=== PATIENT | male | born 1990 | race Caucasian/White ===

== ENCOUNTER 2019-05-12 10:06 | Emergency (ER) | payer MEDICAID ==
[~2019-05-12] VITALS: Ht 170.2 cm; Wt 75.5 kg
[2019-05-12 10:10] VITALS: Ht 170.2 cm; Wt 75.5 kg
[2019-05-12 10:48] VITALS: BP 128/77
== END 2019-05-12 10:48 | disposition home or self-care (01) ==
LOC: ED 10:06
DX: M79.661 Pain in right lower leg (principal); M79.662 Pain in left lower leg; M70.90 Unspecified soft tissue disorder related to use, overuse and pressure of unspecified site

== ENCOUNTER 2019-08-17 20:34 | Emergency (ER) | payer OTHER, MEDICAID ==
[~2019-08-17] VITALS: Ht 170.2 cm; Wt 77.6 kg
[2019-08-17 20:36] VITALS: BP 139/85; Ht 170.2 cm; Wt 77.6 kg
== END 2019-08-17 21:35 | disposition home or self-care (01) ==
LOC: ED 20:34
DX: M54.5 Low back pain (principal); V49.49XA Driver injured in collision with other motor vehicles in traffic accident, initial encounter; Y93.I9 Activity, other involving external motion; Y92.488 Other paved roadways as the place of occurrence of the external cause; Y99.8 Other external cause status